=== PATIENT | female | born 1985 | race Two or more races ===

== ENCOUNTER 2019-04-29 18:19 | Emergency (ER) | payer OTHER, MEDICAID ==
[~2019-04-29] VITALS: Ht 162.6 cm; Wt 70.3 kg
[2019-04-29 19:57] LABS: Urine Bacteria FEW /hpf (None Seen); Urine Blood 2+ /uL (Negative); Urine Mucus FEW (None Seen); Urine Specific Gravity 1.027 (1.001-1.035); Urine WBC 183 /hpf (0 - 5)
[2019-04-29 21:53] VITALS: BP 132/71
== END 2019-04-30 01:15 | disposition home or self-care (01) ==
LOC: ER 18:26
DX: N94.10 Unspecified dyspareunia (principal)
CPT/HCPCS: 81001; 81025; 87210

== ENCOUNTER 2020-12-12 15:44 | Emergency (ER) | payer OTHER, MEDICAID ==
[~2020-12-12] VITALS: Ht 162.6 cm; Wt 70.3 kg
[2020-12-12 15:47] VITALS: BP 135/90
== END 2020-12-12 17:41 | disposition home or self-care (01) ==
LOC: ER 15:47
DX: S16.1XXA Strain of muscle, fascia and tendon at neck level, initial encounter (principal); S39.012A Strain of muscle, fascia and tendon of lower back, initial encounter; V43.62XA Car passenger injured in collision with other type car in traffic accident, initial encounter; Y93.89 Activity, other specified; Y92.488 Other paved roadways as the place of occurrence of the external cause; Y99.8 Other external cause status
CPT/HCPCS: 72040